=== PATIENT | female | born 2000 | race Two or more races ===

== ENCOUNTER → 2024-04-12 | Outpatient (CLI) | payer OTHER | LOC: M WHC 09:28 | PROVIDERS: ATTEND Obstetrics & Gynecology | DX: O26.849 Uterine size-date discrepancy, unspecified trimester (principal) ==

== ENCOUNTER → 2024-05-09 | Outpatient (CLI) | payer OTHER | LOC: M WHC 13:14 | PROVIDERS: ATTEND Obstetrics & Gynecology | DX: O26.849 Uterine size-date discrepancy, unspecified trimester (principal) ==

== ENCOUNTER → 2024-05-15 | Outpatient (REF) | payer OTHER | LOC: M PLALAB 11:03 | PROVIDERS: ATTEND Obstetrics & Gynecology | DX: Z36.89 Encounter for other specified antenatal screening (principal); Z3A.35 35 weeks gestation of pregnancy ==

== ENCOUNTER 2024-06-07 08:29 | Inpatient (IN) | payer OTHER ==
[2024-06-07] VITALS (7 sets, daily range): BP systolic 121–157; BP diastolic 59–90; TEMP 98; O2SAT 98
[~2024-06-07] VITALS: Ht 168.9 cm; Wt 120.4 kg
[2024-06-07] MEDS ORDERED: MONT10TA97 (09:03)
[2024-06-07] MEDS ORDERED: LEXA1TAB (09:03)
[2024-06-07] MEDS ORDERED: OMEP40CA5 (09:03)
[2024-06-07] MEDS ORDERED: PRENTAB9 PO (09:03)
[2024-06-07] MEDS ORDERED: HOME MED LIST COMPLETE! XX SCH (09:05)
[2024-06-07] MEDS ORDERED: OXYTOCIN INJ 10UNITS/ML 1ML VIAL IM PRN (10:45)
[2024-06-07] MEDS ORDERED: OXYTOCIN DRIP 30 UNITS in IV 1 EA IV PRN (10:45)
[2024-06-07] MEDS ORDERED: CARBOPROST TROMETHAMINE 250 MCG/ML AMP IM PRN (10:45)
[2024-06-07 11:50] LABS: HEMATOCRIT 39.8 % (36.0-47.0); HEMOGLOBIN 13.4 g/dl (12.0-15.5); MEAN CORPUSCULAR HEMOGLOBIN 29.2 pg (27.0-33.0); MEAN CORPUSCULAR HGB CONC 33.7 g/dl (32.0-36.5); MEAN CORPUSCULAR VOLUME 86.7 fl (80.0-96.0); PLATELET COUNT, AUTOMATED 312 10^3/uL (150-450); RED BLOOD COUNT 4.59 10^6/uL (4.00-5.40); WHITE BLOOD COUNT 12.4 10^3/uL (4.0-10.0)
[2024-06-07 12:45] LABS: HEPATITIS C VIRUS ABY INDEX < 0.02 INDEX (<0.8)
[2024-06-07 14:13] LABS: HEPATITIS B SURFACE ANTIGEN NEGATIVE (NEGATIVE)
[2024-06-07] MEDS: LACTATED RINGER'S 1000 ML IV SCH (14:38)
[2024-06-07] MEDS: LR 1,000 ML IV SCH ×2 (15:35→16:50)
[2024-06-07] MEDS: AZITHROMYCIN INJ 500 MG, VIAL MATE ADAPTER 1 EACH in NS 250 ML IV ONE (15:35)
[2024-06-07] MEDS: BICITRA 30ML SOLN UDC PO ONE (15:36)
[2024-06-07] MEDS ORDERED: ONDANSETRON 4MG 2ML VIAL As Ordered ONE (15:43)
[2024-06-07] MEDS ORDERED: MORPHINE PRES-FREE INJ 10 MG/10 ML VIAL As Ordered ONE (15:43)
[2024-06-07] MEDS ORDERED: KETOROLAC 60MG 2ML VIAL As Ordered ONE (15:43)
[2024-06-07] MEDS ORDERED: ACETAMINOPHEN 1000MG/100ML IV BAG As Ordered ONE (15:44)
[2024-06-07] MEDS ORDERED: OXYTOCIN 30UNITS IN 0.9% NaCl 500ML IV BAG As Ordered ONE (15:44)
[2024-06-07] MEDS: NS IV ONE (15:46)
[2024-06-07] MEDS: GENTAMICIN IV ONE (15:46)
[2024-06-07] MEDS: CLINDAMYCIN 900 MG in IV 1 EA IV ONE (15:46)
[2024-06-07] MEDS ORDERED: ePHEDrine INJ 50MG/ML 1ML VIAL As Ordered ONE (15:49)
[2024-06-07] MEDS ORDERED: CALCIUM CARBONATE 500 MG CHEW U/D PO PRN (16:05)
[2024-06-07] MEDS ORDERED: RHOGAM 300MCG (1500IU) INJ IM SCH (16:05)
[2024-06-07] MEDS ORDERED: LR 1,000 ML IV SCH (16:05)
[2024-06-07] MEDS ORDERED: ONDANSETRON 4MG 2ML VIAL IV PRN ×2 (16:05→16:50)
[2024-06-07] MEDS ORDERED: MOM 30ML SUSPENSION UDC PO PRN (16:05)
[2024-06-07] MEDS ORDERED: SIMETHICONE 80MG CHEW TAB PO PRN (16:05)
[2024-06-07] MEDS ORDERED: PHENYLephrine 500MCG 5ML (100MCG/ML) SYRINGE As Ordered ONE (16:15)
[2024-06-07] MEDS: SLF 3 ML SYR IV SCH (16:50)
[2024-06-07] MEDS ORDERED: oxyCODONE 5MG TAB PO PRN (16:50)
[2024-06-07] MEDS ORDERED: **NOTE PATIENT COMMENT** MISC XX SCH (16:50)
[2024-06-07] MEDS ORDERED: NALOXONE INJ 0.4MG/1ML VIAL IV PRN ×2 (16:50)
[2024-06-07] MEDS ORDERED: diphenhydrAMINE 50MG/ML VIAL IV PRN (16:50)
[2024-06-07] MEDS ORDERED: METOCLOPRAMIDE INJ 10MG/2ML VIAL IV PRN (16:50)
[2024-06-07] MEDS: METHYLERGONOVINE MALEATE 0.2MG/ML 1ML VIAL IM PRN (17:23)
[2024-06-07] MEDS: OXYTOCIN DRIP 30 UNITS in IV 1 EA IV SCH (17:32)
[2024-06-07] MEDS ORDERED: fentaNYL 100 MCG/2 ML INJECTION As Ordered ONE (18:02)
[2024-06-07] MEDS: fentaNYL 100 MCG/2 ML INJECTION IV PRN (18:04)
[2024-06-07] MEDS: TRANEXAMIC ACID INJection 1,000 MG in NS 100 ML IV PRN (18:40)
[2024-06-07] MEDS: KETOROLAC 30 MG/ML 1ML VIAL IV SCH (21:54)
[2024-06-07] MEDS: DOCUSATE SODIUM 100MG CAPSULE PO SCH (21:54)
[2024-06-07] MEDS: MONTELUKAST 10 MG TAB PO SCH (21:55)
[2024-06-07] MEDS: ESCITALOPRAM OXALATE 10 MG TAB (LEXAPRO) PO SCH (21:55)
[2024-06-07] MEDS: OMEPRAZOLE 20MG CAP PO PRN (22:09)
[2024-06-08 02:00] VITALS: BP 134/78; O2SAT 100
[2024-06-08 05:57] VITALS: BP 120/68; O2SAT 99
[2024-06-08 06:34] LABS: HEMATOCRIT 30.7 % (36.0-47.0); MEAN CORPUSCULAR HEMOGLOBIN 29.1 pg (27.0-33.0); MEAN CORPUSCULAR HGB CONC 33.2 g/dl (32.0-36.5); MEAN CORPUSCULAR VOLUME 87.5 fl (80.0-96.0); RED BLOOD COUNT 3.51 10^6/uL (4.00-5.40); WHITE BLOOD COUNT 10.6 10^3/uL (4.0-10.0)
[2024-06-08 06:35] LABS: HEMOGLOBIN 10.2 g/dl (12.0-15.5); PLATELET COUNT, AUTOMATED 205 10^3/uL (150-450)
[2024-06-08] MEDS: PRENATAL VITAMINS CHEWABLE TABLET PO SCH (08:00)
[2024-06-08 10:00] VITALS: BP 117/63; O2SAT 98
[2024-06-08] MEDS ORDERED: miSOPROStol 50MCG 1/2 TABLET PO SCH (12:00)
[2024-06-08] MEDS: PERCOCET 5MG/325MG TAB PO PRN ×2 (13:23→20:59)
[2024-06-08 14:00] VITALS: BP 129/68; O2SAT 99
[2024-06-08 17:57] VITALS: BP 119/68; O2SAT 98
[2024-06-08] MEDS: IBUPROFEN 800 MG TAB PO SCH (19:23)
[2024-06-08 22:06] VITALS: BP 131/72; O2SAT 99
[2024-06-09 02:43] VITALS: BP 119/72; O2SAT 99
[2024-06-09 05:33] VITALS: BP 126/69; O2SAT 99
[2024-06-09] MEDS ORDERED: MEASLES,MUMPS,RUBELLA VACCINE INJ (MMR-II) SC.IMMUN ONE (09:00)
== END 2024-06-09 12:55 | disposition home or self-care (01) | DRG 785 ==
LOC: M LDI 08:29 → M OBS 19:17
PROVIDERS: ADMIT Advanced Practice Midwife; ATTEND Obstetrics & Gynecology
PROC: 0UB70ZZ Excision of Bilateral Fallopian Tubes, Open Approach (ICD-10-PCS; 2024-06-07)
PROC: 10D00Z1 Extraction of Products of Conception, Low, Open Approach (ICD-10-PCS; principal; 2024-06-07 15:30)
DX: O34.211 Maternal care for low transverse scar from previous cesarean delivery (principal); Z3A.39 39 weeks gestation of pregnancy; O24.429 Gestational diabetes mellitus in childbirth, unspecified control; Z79.899 Other long term (current) drug therapy; Z88.1 Allergy status to other antibiotic agents; O40.3XX0 Polyhydramnios, third trimester, not applicable or unspecified; O36.63X0 Maternal care for excessive fetal growth, third trimester, not applicable or unspecified; Z37.0 Single live birth; Z30.2 Encounter for sterilization